=== PATIENT | female | born 1960 | race Caucasian/White ===

== ENCOUNTER → 2020-10-25 | Outpatient (CLI) | payer OTHER ==
[~2020-10-25] MED LIST: COLACE 100MG C100 MG PO
== END ==
LOC: KOH-I 11:26
DX: R06.02 Shortness of breath (principal)
CPT/HCPCS: 71046

== ENCOUNTER 2021-03-17 11:01 | Emergency (ER) | payer OTHER ==
[2021-03-17 12:25] LABS: RED BLOOD COUNT 3.88 M/UL (4.00-5.10); WHITE BLOOD COUNT 15.3 K/UL (4.5-11.0)
[2021-03-17 12:59] LABS: BUN/CREATININE RATIO 13 (0-10)
== END 2021-03-17 13:22 | disposition home or self-care (01) ==
LOC: ER1 11:01
PROVIDERS: Physician Assistant Medical
DX: J44.9 Chronic obstructive pulmonary disease, unspecified (principal); I10 Essential (primary) hypertension; E11.9 Type 2 diabetes mellitus without complications; F17.210 Nicotine dependence, cigarettes, uncomplicated; Z20.822 Contact with and (suspected) exposure to COVID-19; Z90.49 Acquired absence of other specified parts of digestive tract
CPT/HCPCS: 71045; 80053; 85025; 94664; 96374; 99285; J1100; U0002

== ENCOUNTER 2021-04-02 09:22 | Emergency (ER) | payer OTHER | END 2021-04-02 10:40 | disposition home or self-care (01) | LOC: ER1 09:22 | DX: M17.11 Unilateral primary osteoarthritis, right knee (principal); F17.200 Nicotine dependence, unspecified, uncomplicated; Z79.899 Other long term (current) drug therapy | CPT/HCPCS: 73562; 99283 ==

== ENCOUNTER → 2021-06-27 | Outpatient (CLI) | payer OTHER ==
[~2021-06-27] MED LIST changes: +BUSPAR 10MG10 MG PO; +COREG25 MG PO; +CREON DR 24,001 EACH PO; +CRESTOR20 MG PO; +CYCLOBENZAPRINE10 MG PO; +CYMBALTA60 MG PO; +DALIRESP500 MCG PO; +DITROPAN 5 MG TA5 MG PO; +IBU-200200 MG PO; +KEFLEX PO; +LASIX40 MG PO; +LEVOXYL75 MCG PO; +LODINE PO; +MULTI-VITAMIN1 EACH PO; +NEURONTIN800 MG PO; +PAXIL 20 MG TAB20 MG PO; +PHENERGAN 25 MG25 M1 PO; +POTASSIUM CHLO10 MEQ PO; +PROTONIX 40 MG40 M1 PO; +ROBAXIN 750 MG750 MG PO; +RYBELSUS7 MG PO; +SALAGEN5 MG PO; +SINGULAIR10 MG PO; +VITAMIN C500 M4 PO; +VITAMIN D PO; +WELLBUTRIN SR150 M1 PO; +ZYLOPRIM100 MG PO; +ZYRTEC10 MG PO
[2021-06-27 13:07] LABS: HEMOGLOBIN 12.5 gm/dl (12.3-15.3); WHITE BLOOD COUNT 9.5 K/UL (4.5-11.0)
[2021-06-27 13:31] LABS: BUN/CREATININE RATIO 15 (0-10)
== END ==
LOC: OPSV2 12:30 → EDSTATUS 12:30 → OPSV2 12:35
PROVIDERS: Orthopaedic Surgery
DX: Z01.818 Encounter for other preprocedural examination (principal); M17.11 Unilateral primary osteoarthritis, right knee
CPT/HCPCS: 80048; 85025; 93005

== ENCOUNTER → 2021-08-21 | Outpatient (CLI) | payer OTHER ==
[~2021-08-21] MED LIST changes: +ALBUTEROL2.5 MG/3 M INH; +CEPHALEXIN500 MG PO; +DICLOFENAC GEL 1% TOP; +DILAUDID2 MG PO; +ELIQUIS 2.5 MG2.5 MG PO; +ETODOLAC500 MG PO; +HYDROCORTISONE 2.5% TOP; -KEFLEX PO; -LODINE PO; +PEPCID20 MG PO; +PERCOCET 10-321 EACH PO; +PROVENTIL HFA6.7 GM INH; +TRIAMCINOLONE 0.1% TOP; +TYLENOL325 MG PO; +VITAMIN D 40400 UNIT PO; -VITAMIN D PO
[2021-08-21 10:09] LABS: HEMOGLOBIN 11.8 gm/dl (12.3-15.3); RED BLOOD COUNT 3.91 M/UL (4.00-5.10)
[2021-08-21 10:20] LABS: BUN/CREATININE RATIO 11 (0-10)
== END ==
LOC: EDSTATUS 09:00 → OPSV2 09:00
PROVIDERS: Anesthesiology
DX: Z01.812 Encounter for preprocedural laboratory examination (principal)
CPT/HCPCS: 80048; 85025

== ENCOUNTER → 2021-08-23 | Day surgery (SDC) | payer OTHER | END | disposition home or self-care (01) | LOC: OR 09:55 → EDSTATUS 17:30 | DX: S83.014A Lateral dislocation of right patella, initial encounter (principal); T81.32XA Disruption of internal operation (surgical) wound, not elsewhere classified, initial encounter; M96.840 Postprocedural hematoma of a musculoskeletal structure following a musculoskeletal system procedure; I10 Essential (primary) hypertension; E78.5 Hyperlipidemia, unspecified; J44.9 Chronic obstructive pulmonary disease, unspecified; K21.9 Gastro-esophageal reflux disease without esophagitis; N28.9 Disorder of kidney and ureter, unspecified; C50.919 Malignant neoplasm of unspecified site of unspecified female breast; M19.90 Unspecified osteoarthritis, unspecified site; E11.9 Type 2 diabetes mellitus without complications; J45.909 Unspecified asthma, uncomplicated; E03.9 Hypothyroidism, unspecified; X58.XXXA Exposure to other specified factors, initial encounter; Z96.651 Presence of right artificial knee joint; Z90.12 Acquired absence of left breast and nipple; Z90.49 Acquired absence of other specified parts of digestive tract; Z88.0 Allergy status to penicillin; Z88.1 Allergy status to other antibiotic agents; Z88.8 Allergy status to other drugs, medicaments and biological substances; Z79.1 Long term (current) use of non-steroidal anti-inflammatories (NSAID); Z79.891 Long term (current) use of opiate analgesic; Z79.899 Other long term (current) drug therapy | CPT/HCPCS: 73560; 86850; 86900; 86901; 87070; J0690; J1100; J1170; J2250; J2270; J2405; J2704; J3010; J3370; J7050; J7120 ==